=== PATIENT | female | born 2005 | race Caucasian/White ===

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

== ENCOUNTER 2025-03-16 09:24 | Outpatient (CLI) | payer BC, SELFPAY ==
--- NOTE | 2025-03-16 09:33 | XR_ITS ---
WS: [id number] PETE, AP view, 03/16/2025 Clinical Data: LLQ pain Comparison: None. Findings: No abnormal intraabdominal masses or calcifications are seen. There is no dilatated small bowel or evidence of obstruction. There is a moderate amount of fecal material in the colon. XR/XR KUB [id number] Impression: Moderate amount of fecal material in the colon.
== END 2025-03-16 09:25 | disposition home or self-care (01) ==
DX: R10.32 Left lower quadrant pain (principal); K56.41 Fecal impaction
CPT/HCPCS: 74018; 80053; 81000; 81025; 85025

== ENCOUNTER 2025-03-25 08:23 | Outpatient (CLI) | payer BC, SELFPAY ==
--- NOTE | 2025-03-25 08:30 | US_ITS ---
WS: [id number] ULTRASOUND SOFT TISSUES LEFT groin. HISTORY: Enlarged lymph in groin COMPARISON: None available. TECHNIQUE: 2-D and color Doppler imaging is submitted. Ultrasound performed along the LEFT inguinal region. Normal appearance of the vein artery. There is a soft tissue mass identified. No lymph node or hernia identified by ultrasound. US/US soft tissue/extremity [id number] IMPRESSION: Negative ultrasound evaluation of the LEFT inguinal region. If there is a camille rn for hernia consider CT evaluation of the pelvis which can be performed witho ut IV or oral contrast.
== END 2025-03-25 08:24 | disposition home or self-care (01) ==
DX: R59.9 Enlarged lymph nodes, unspecified (principal)
CPT/HCPCS: 76882

== ENCOUNTER 2025-03-30 14:15 | Outpatient (CLI) | payer BC, SELFPAY ==
--- NOTE | 2025-03-30 14:00 | CTR_ITS ---
PROCEDURE INFORMATION: Exam: CT Abdomen And Pelvis Without Contrast Exam date and time: 03/30/2025 2:32 PM Age: 19 years old Clinical indication: Abdominal pain; Localized; Left lower quadrant (llq); Llq pain and lump-bb x 2 weeks; Additional info: Llq pain and mass felt on exam TECHNIQUE: Imaging protocol: Computed tomography of the abdomen and pelvis without contrast. Radiation optimization: All CT scans at this facility use at least one of these dose optimization techniques: automated exposure control; mA and/or kV adjustment per patient size (includes targeted exams where dose is matched to clinical indication); or iterative reconstruction. COMPARISON: No relevant prior studies available. RADIATION DOSE METRICS: Total DLP (mGy-cm): 279.06 FINDINGS: Limitations: Evaluation of solid organs, viscera, and vasculature is limited without intravenous contrast. Lungs: Lung bases are clear. Liver: Normal. Gallbladder and biliary ducts: No radiodense gallstones. No biliary ductal dilation. Pancreas: Normal. Spleen: Normal. Adrenal glands: Normal. Kidneys and ureters: No hydronephrosis. No urolithiasis. Stomach and bowel: No bowel obstruction or inflammation. Large volume gastric contents. Large volume of stool throughout the colon. Appendix: Normal. Intraperitoneal space: No free air. No free fluid. No intra-abdominal mass underlying the BB marker. Vasculature: Abdominal aorta is normal in course and caliber. Lymph nodes: No lymphadenopathy. Urinary bladder: Unremarkable as visualized. Reproductive: Unremarkable uterus. No adnexal mass. Bones/joints: No acute osseous abnormality. Soft tissues: Unremarkable. CT/CT abdomen pelvis wo con [id number] IMPRESSION: Large volume of stool throughout the colon. Large volume gastric contents.
== END 2025-03-30 14:16 | disposition home or self-care (01) ==
LOC: RAD 14:17
DX: R10.32 Left lower quadrant pain (principal); K56.41 Fecal impaction
CPT/HCPCS: 74176